=== PATIENT | female | born 1970 | race Caucasian/White ===

== ENCOUNTER → 2021-04-26 | Outpatient (CLI) | payer OTHER | LOC: CT 07:03 | DX: E27.8 Other specified disorders of adrenal gland (principal) | CPT/HCPCS: 74170; Q9967 ==

== ENCOUNTER → 2021-07-09 | Outpatient (CLI) | payer OTHER | LOC: KOH-I 15:36 → RAD 15:36 | DX: R06.02 Shortness of breath (principal); J98.09 Other diseases of bronchus, not elsewhere classified | CPT/HCPCS: 71046 ==

== ENCOUNTER → 2021-10-02 | Outpatient (CLI) | payer OTHER ==
[~2021-10-02] MED LIST: METFORMIN ER G500 MG PO
[2021-10-02 10:04] LABS: HEMOGLOBIN 13.2 gm/dl (12.3-15.3); RED BLOOD COUNT 4.91 M/UL (4.00-5.10); WHITE BLOOD COUNT 7.1 K/UL (4.5-11.0)
[2021-10-02 10:25] LABS: BUN/CREATININE RATIO 22 (0-10)
== END ==
LOC: OPSV2 08:00
PROVIDERS: Obstetrics & Gynecology
DX: Z01.812 Encounter for preprocedural laboratory examination (principal); R10.2 Pelvic and perineal pain
CPT/HCPCS: 36415; 80053; 85025

== ENCOUNTER → 2021-10-08 | Outpatient (CLI) | payer OTHER | LOC: LAB 09:20 | DX: Z20.822 Contact with and (suspected) exposure to COVID-19 (principal) | CPT/HCPCS: U0003 ==

== ENCOUNTER 2021-10-11 05:46 | Day surgery (SDC) | payer OTHER ==
[~2021-10-11] VITALS: Ht 160 cm; Wt 111.1 kg
[2021-10-12 02:58] LABS: HEMOGLOBIN 10.2 gm/dl (12.3-15.3)
[2021-10-12] MEDS ORDERED: HEMOCYTE324 MG PO (12:14)
[2021-10-12] MEDS ORDERED: IBUPROFEN800 MG PO (12:14)
[2021-10-12] MEDS ORDERED: COLACE100 MG PO (12:14)
[2021-10-12] MEDS ORDERED: PERCOCET 10-321 EACH PO (12:14)
== END 2021-10-12 16:37 | disposition home or self-care (01) ==
LOC: OR 05:46 → EDSTATUS 11:00 → M/S 12:06 → OR 10-12 16:37
PROVIDERS: Obstetrics & Gynecology
DX: N72 Inflammatory disease of cervix uteri (principal); N80.0 Endometriosis of uterus; D25.1 Intramural leiomyoma of uterus; D25.2 Subserosal leiomyoma of uterus; N73.6 Female pelvic peritoneal adhesions (postinfective); N83.201 Unspecified ovarian cyst, right side; R73.03 Prediabetes; E66.9 Obesity, unspecified; Z68.41 Body mass index [BMI] 40.0-44.9, adult; Z98.51 Tubal ligation status
CPT/HCPCS: 81001; 82962; 84703; 85014; 85018; J0690; J1100; J1170; J1885; J2001; J2250; J2270; J2405; J2704; J3010; J7030; J7120

== ENCOUNTER → 2022-01-21 | Outpatient (CLI) | payer OTHER ==
[~2022-01-21] MED LIST changes: +COLACE100 MG PO; +HEMOCYTE324 MG PO; +IBUPROFEN800 MG PO; +PERCOCET 10-321 EACH PO
== END ==
LOC: KOH-I 10:36
DX: M54.50 Low back pain, unspecified (principal); M47.816 Spondylosis without myelopathy or radiculopathy, lumbar region
CPT/HCPCS: 72100; 72220

== ENCOUNTER → 2022-01-23 | Outpatient (CLI) | payer OTHER | LOC: KOH-I 11:58 | DX: S32.10XA Unspecified fracture of sacrum, initial encounter for closed fracture (principal) | CPT/HCPCS: 72192 ==